=== PATIENT | male | born 1995 | race African-American/Black ===

== ENCOUNTER 2018-10-28 14:10 | Inpatient (IN) | payer OTHER ==
[~2018-10-28] VITALS: Ht 188 cm; Wt 96.8 kg
[2018-10-28] MEDS ORDERED: IV NORMAL SALINE 1,000ML 1,000 ML IV ONE (14:30)
--- NOTE | 2018-10-28 14:38 | PHYS DOC ---
Past History Past Medical History: No Pertinent History Past Surgical History: No Surgical History Smoking: Non-smoker Alcohol Use: Rarely Drug Use: None Adult General Chief Complaint Chief Complaint: MUSCLE SPASM/CRAMP HPI HPI Patient is a 23-year-old male presents with muscle cramping after prolonged [employer] physical training session this morning. This physical training included running, rock marching, and swimming. It was at the swimming that the cramping started. Patient denies any blood in his urine or dark urine. Patient reports the cramping is doing better. Patient has not been deployed recently. No nausea or vomiting.[] Review of Systems Review of Systems Constitutional: Denies fever or chills [] Eyes: Denies change in visual acuity, redness, or eye pain [] HENT: Denies nasal congestion or sore throat [] Respiratory: Denies cough or shortness of breath [] Cardiovascular: No chest pain or palpitations[] GI: Denies abdominal pain, nausea, vomiting, bloody stools or diarrhea [] : Denies dysuria or hematuria [] Musculoskeletal: Denies back pain or joint pain, see history of present illness [] Integument: Denies rash or skin lesions [] Neurologic: Denies headache, focal weakness or sensory changes [] Endocrine: Denies polyuria or polydipsia [] All other systems were reviewed and found to be within normal limits, except as documented in this note. Allergies Allergies Allergies Coded Allergies Type Severity Reaction Last Updated Verified No Known Drug Allergies 10/28/18 No Physical Exam Physical Exam Constitutional: Well developed, well nourished, no acute distress, non-toxic appearance. [] HENT: Normocephalic, atraumatic, bilateral external ears normal, oropharynx moist, no oral exudates, nose normal. [] Eyes: PERRLA, EOMI, conjunctiva normal, no discharge. [] Neck: Normal range of motion, no tenderness, supple, no stridor. [] Cardiovascular:Heart rate regular rhythm, no murmur [] Lungs & Thorax: Bilateral breath sounds clear to auscultation [] Abdomen: Bowel sounds normal, soft, no tenderness, no masses, no pulsatile masses. [] Skin: Warm, dry, no erythema, no rash. [] Back: No tenderness, no CVA tenderness. [] Extremities: No tenderness, no cyanosis, no clubbing, ROM intact, no edema. [] Neurologic: Alert and oriented X 3, normal motor function, normal sensory function, no focal deficits noted. [] Psychologic: Affect flat, mood normal. [] Current Patient Data Vital Signs Vital Signs Date Time Temp Pulse Resp B/P (MAP) Pulse Ox O2 Delivery O2 Flow Rate FiO2 10/28/18 14:25 98.5 92 20 98 Room Air EKG EKG [] Radiology/Procedures Radiology/Procedures [] Course & Med Decision Making Course & Med Decision Making Pertinent Labs and Imaging studies reviewed. (See chart for details) ED course: Patient arrived, was placed in bed, and tolerated exam well. IV fluids were started. After the return of laboratory studies, these were discussed with the patient voiced understanding. Consultation was made with the hospitalist service for admission. D5W with 3 A of bicarbonate was started. All the patient's questions were answered. He was admitted in improved condition. Medical decision making: Patient appears to have rhabdomyolysis with acute kidney injury. We will admit him for continued IV hydration and further evaluation and treatment.[] Dragon Disclaimer Dragon Disclaimer This electronic medical record was generated, in whole or in part, using a voice recognition dictation system. Departure Departure: Impression: Primary Impression: Rhabdomyolysis Additional Impression: Acute kidney injury Disposition: ADMITTED INPATIENT Admitting Physician: Yareli Ward Condition: IMPROVED Referrals: PCP,NO (PCP) Problem Qualifiers Primary Impression: Rhabdomyolysis Rhabdomyolysis type: non-traumatic Qualified Codes: M62.82 - Rhabdomyolysis JESSICA YODER DO Oct 28, 2018 14:38
[2018-10-28 14:53] LABS: BASO # 0.1 x10^3/uL (0.0-0.2); BASO % 1 % (0-3); EOS % 0 % (0-3); HEMATOCRIT 43.2 % (39.0-53.0); HEMOGLOBIN 14.6 g/dL (13.0-17.5); LYMPH # 1.5 x10^3/uL (1.0-4.8); LYMPH % 11 % (24-48); MEAN CORPUSCULAR HEMOGLOBIN 32 pg (25-35); MEAN CORPUSCULAR HGB CONC 34 g/dL (31-37); MEAN CORPUSCULAR VOLUME 95 fL (79-100); MONO # 0.7 x10^3/uL (0.0-1.1); MONO % 5 % (0-9); NEUT # 10.9 x10^3uL (1.8-7.7); NEUT % 83 % (31-73); PLATELET COUNT 207 x10^3/uL (140-400); RED BLOOD COUNT 4.57 x10^6/uL (4.30-5.70); RED CELL DISTRIBUTION WIDTH 13.3 % (11.5-14.5); WHITE BLOOD COUNT 13.3 x10^3/uL (4.0-11.0)
[2018-10-28 15:15] LABS: ALBUMIN 4.1 g/dL (3.4-5.0); ALBUMIN/GLOBULIN RATIO 1.1 (1.0-1.7); CALCIUM 9.6 mg/dL (8.5-10.1); CREATININE 1.6 mg/dL (0.7-1.3); GFR 65.1; POTASSIUM 4.1 mmol/L (3.5-5.1); TOTAL BILIRUBIN 0.6 mg/dL (0.2-1.0); TOTAL PROTEIN 7.8 g/dL (6.4-8.2)
[2018-10-28] MEDS ORDERED: SODIUM BICARBONATE IVF 150 MEQ in IV DEXTROSE 5% 1,000 ML IV ONE (15:45)
[2018-10-28] MEDS ORDERED: ONDANSETRON PF 4 MG/2 ML VIAL. IV PRN (16:00)
[2018-10-28] MEDS ORDERED: ACETAMINOPHEN 325 MG TABLET PO PRN (16:00)
[2018-10-28 16:03] LABS: BILIRUBIN,URINE NEG (NEG); CLARITY,URINE CLEAR; COLOR,URINE YELLOW; GLUCOSE,URINE NEG (NEG)
[2018-10-28 16:04] LABS: BACTERIA,URINE 0 /HPF (0-FEW); HYALINE CASTS, URINE MANY /HPF; NITRITE,URINE NEG (NEG); RBC,URINE 0 /HPF (0-2); UROBILINOGEN,URINE 0.2 mg/dL (0.2 mg/dL)
[2018-10-28 16:24] VITALS: BP 132/79
--- NOTE | 2018-10-28 17:41 | HP ---
ADMIT DATE: 10/28/2018 HISTORY OF PRESENT ILLNESS: The patient is a 23-year-old -Cypriot male patient, who presented to the Emergency Room with muscle cramping after prolonged [employer] physical training session this morning. The physical training included running, ruck marching and swimming. It was at the swimming that the cramping started. The patient denied any blood in his urine or dark urine. He reported the cramping is doing better by the time he arrived here. He denied any other complaint. He denied any other medical problems. He was evaluated in the Emergency Room and lab work showed that his CK was high at 1883. His creatinine is 1.6. Unfortunately, we do not have any other value to compare with, but he is also a muscular man with weight of 94, was admitted for rehydration and the urine alkalization. PAST MEDICAL HISTORY: Unremarkable. PAST SURGICAL HISTORY: Unremarkable. ALLERGIES: He has no known drug allergies. MEDICATIONS: He is currently on no medication by prescription or otherwise. FAMILY HISTORY: His father is alive at the age of 50 and has diabetes. Mother is alive at age of 52 and healthy. He has 4 brothers and 3 sisters. One sister is younger, all others are older. SOCIAL HISTORY: He is single, has no children. He does not smoke, drink alcohol every weekend, does not use any drugs. PHYSICAL EXAMINATION: GENERAL: On examining him, he looked well and was clearly in no apparent respiratory distress. No pallor, jaundice, cyanosis or thyromegaly. No jugular venous distention. No limb edema. VITAL SIGNS: His heart rate was 84, blood pressure was 132/79, temperature was 98, respiratory rate 20, and oxygen saturation was 97%. HEAD, EYES, EARS, NOSE AND THROAT: Showed normocephalic, atraumatic. NECK: Supple. HEART: Showed normal first and second heart sounds. No gallop or murmur. CHEST: Clear to auscultation. No crepitation or rhonchi. ABDOMEN: Distended, soft, nontender. NEUROLOGIC: He is awake, alert, responding appropriately. All his cranial nerves are intact. He moves extremities without difficulty. He ambulates without assistance or assistive devices. LABORATORY DATA: Showed a serum sodium 137, potassium 4.1, chloride 100, bicarbonate 28, anion gap of 9, BUN 13, creatinine 1.6, estimated GFR was 65 mL per minute. His glucose was 119. Calcium was 9.6. Total bilirubin, AST, ALT were normal. CK was 1883. Total protein was 7.8, albumin 4.1. White cell count was 13,300; hemoglobin 14.6; hematocrit 43; MCV 95; and platelet count 207,000. His prothrombin time was 11.6, INR 1.1. His urinalysis showed the urine was yellow, clear with a pH of 6, specific gravity of 1.015. The urine was negative for protein and glucose; trace amount of ketones; negative for blood, nitrite, leukocyte esterase. There are no rbc's, 1-4 wbc's and no bacteria. ASSESSMENT AND PLAN: The patient was admitted with rhabdomyolysis, likely due to strenuous exercise during prolonged [employer] physical training session. He will receive 2 liters of normal saline and is now on a bicarbonate drip. We will monitor his lab work closely and make sure to replenish his potassium and monitor his kidney function. ROXANNE CALERO MD DR: MERY/case JOB#: [id number] / [id number]
[2018-10-28 19:00] VITALS: BP 123/69
[2018-10-28] MEDS: POTASSIUM CHLORIDE 20 MEQ TABLET.ER. PO SCH (21:07)
[2018-10-29 00:12] VITALS: BP 111/71
[2018-10-29] MEDS: IV NORMAL SALINE 1,000ML 1,000 ML IV SCH ×2 (04:45→12:00)
[2018-10-29 06:05] VITALS: BP 117/72
[2018-10-29 06:53] LABS: ALBUMIN 3.2 g/dL (3.4-5.0); CALCIUM 8.5 mg/dL (8.5-10.1); CREATININE 1.2 mg/dL (0.7-1.3); GFR 90.8; POTASSIUM 3.7 mmol/L (3.5-5.1); TOTAL BILIRUBIN 0.5 mg/dL (0.2-1.0); TOTAL PROTEIN 6.3 g/dL (6.4-8.2)
[2018-10-29] MEDS: POTASSIUM CHLORIDE 20 MEQ TABLET.ER. PO SCH ×2 (08:37→20:52)
[2018-10-29 11:33] VITALS: BP 127/73
[2018-10-29 15:59] VITALS: BP 125/72
[2018-10-29 20:55] VITALS: BP 135/78
[2018-10-30] MEDS: IV NORMAL SALINE 1,000ML 1,000 ML IV SCH (02:00)
--- NOTE | 2018-10-30 03:44 | PN ---
DATE: 10/28/2018 SUBJECTIVE: The patient was admitted yesterday with traumatic rhabdomyolysis. He is doing generally better; however, unfortunately his CPK has risen further to 5045, although his BUN and creatinine has dropped down from 13 and 1.6 down to ____. The patient was insisting he wants to go home; however, we have managed to convince him to stay to continue the IV fluid. OBJECTIVE: GENERAL: On examining him this afternoon, he looked well and was clearly in no apparent respiratory distress. No pallor, jaundice, cyanosis or thyromegaly. No jugular venous distension. No lower limb edema. VITAL SIGNS: Her heart rate was 78, blood pressure 125/72, temperature was 98.2, respiratory rate was 18 and oxygen saturation was 97%. The rest of the clinical exam is stable, has not changed. The patient is ambulatory. PLAN: To repeat his lab work tomorrow, and if the CK is improving, he can be discharged home. ROXANNE CALERO MD DR: MERY/case JOB#: [id number] / [id number]
[2018-10-30 06:08] VITALS: BP 129/77
[2018-10-30 06:47] LABS: ALBUMIN 3.1 g/dL (3.4-5.0); ALBUMIN/GLOBULIN RATIO 0.9 (1.0-1.7); CALCIUM 8.6 mg/dL (8.5-10.1); CREATININE 1.1 mg/dL (0.7-1.3); GFR 100.4; TOTAL BILIRUBIN 0.3 mg/dL (0.2-1.0); TOTAL PROTEIN 6.4 g/dL (6.4-8.2)
[2018-10-30] MEDS: POTASSIUM CHLORIDE 20 MEQ TABLET.ER. PO SCH (08:03)
[2018-10-30 10:48] VITALS: BP 133/80
[2018-10-30 15:25] VITALS: BP 135/79
--- NOTE | 2018-10-31 01:49 | CONS ---
DATE OF CONSULTATION: NEUROLOGY CONSULTATION REFERRING PHYSICIAN: Dr. Ward. REASON FOR CONSULTATION: Generalized muscle pain. HISTORY OF PRESENT ILLNESS: This is a 23-year-old right-handed -Thai female who was admitted through Emergency Room after he presented with chief complaints of generalized muscle cramping for the last 3 days. The patient stated he had a competition at work including strenuous physical training and activities including running a rock marathon and swimming. The patient denies any muscle weakness, neck pain, low back pain, chest pain, shortness of breath or visual disturbances, headaches, nausea, vomiting, dysarthria, or dysphagia. CPK has been in 6176 today jumped from day of admission from 1883. The patient has been receiving plenty of IV fluid. However, his BUN and creatinine today has been within normal range; however, creatinine has been normal today with low BUN at 7. PAST MEDICAL HISTORY: Unremarkable. PAST SURGICAL HISTORY: Unremarkable. FAMILY HISTORY: Father has diabetes and he is at age of 50. Mother is at the age of 52 and healthy and all his siblings are healthy. SOCIAL HISTORY: The patient is single. He denies smoking, alcohol drinking, or illicit drug use. REVIEW OF SYSTEMS: A 10-point review of system was performed as mentioned above in history of present illness. PHYSICAL EXAMINATION: GENERAL: Well-developed, well-nourished male, not in acute distress. He weighs 96.8 kilos. VITAL SIGNS: Blood pressure 135/79, respiratory rate 20, pulse is 66, temperature is 98.2, oxygen saturation 98% on room air. HEENT: Normocephalic, atraumatic, otherwise unremarkable. NECK: Supple. Negative for carotid bruit, lymphadenopathy or thyromegaly. LUNGS: Clear to A and P. CARDIOVASCULAR: Regular rhythm, normal S1, S2. There is no S3, S4 or murmur. ABDOMEN: Soft. Bowel sounds positive. EXTREMITIES: Negative for cyanosis, clubbing or edema. NEUROLOGICAL EXAM: Mental Status: The patient is alert and oriented x 3. Speech is fluent. There is no language dysfunction. Memory, judgment, and abstract thinking are normal. The patient denies hallucination or delusion. CRANIAL NERVES: Visual hayes are full. The pupils are reactive to light and accommodation. The extraocular movements are intact. There is no nystagmus. There is no facial motor or sensory deficit. Hearing is intact bilaterally. The palate is elevated symmetrically. Sternocleidomastoid muscles are powerful bilaterally. The patient shrugs his shoulders symmetrically, protrudes his tongue without fasciculation or atrophy. MOTOR EXAMINATION: No focal muscle bulk was seen. The tone is normal. The strength is 5/5 throughout. Sensory examination revealed normal pinprick, light touch, vibratory and position senses. Deep tendon reflexes were symmetric and active without pathology responses. Gait and coordination are normal. LABORATORY DATA: CBC from 10/28/2018 revealed white blood cells of 13.3 thousand, hemoglobin 14.6, hematocrit 43.2, and platelet count 207,000. Chemistry from 10/30/2018 revealed sodium of 140, potassium 4, chloride 104, CO2 of 30, BUN 7, creatinine 1.1, glucose 87. AST is high at 78, ALT is normal. CPK today is 6176. Urinalysis is negative for urinary tract infections. IMPRESSION: 1. Generalized muscle cramping for 3 days after strenuous physical training and competition with elevated CPK. 2. Otherwise normal neurological examination. RECOMMENDATIONS: 1. The patient should maintain enough fluid intake in the coming few days. 2. Avoid strenuous training exercise for now. 3. Repeat CPK in 1 week. M Veronique NIEVES MD DR: PEEWEE/case JOB#: [id number] / [id number]
== END 2018-10-30 16:35 | disposition home or self-care (01) | DRG 564 ==
LOC: ER 14:10 → 1 SOUTH 16:08
PROVIDERS: ADMIT Internal Medicine; ATTEND Internal Medicine
DX: T79.6XXA Traumatic ischemia of muscle, initial encounter (principal); N17.0 Acute kidney failure with tubular necrosis; Z83.3 Family history of diabetes mellitus; X58.XXXA Exposure to other specified factors, initial encounter
CPT/HCPCS: 36415; 80053; 81001; 82550; 85025; 85610; 96360; 99285-25; J7030